=== PATIENT | female | born 1980 | race Caucasian/White ===

== ENCOUNTER → 2018-01-09 11:10 | Outpatient (CLI) | payer OTHER, MEDICAID, SELFPAY | PROVIDERS: Visit Provider Specialist | DX: Z53.9 Procedure and treatment not carried out, unspecified reason (principal) ==

== ENCOUNTER → 2018-04-16 09:48 | Outpatient (CLI) | payer OTHER, MEDICAID, SELFPAY ==
[2018-04-16 10:15] LABS: Add Manual Diff / Slide Review NO; Basophils Percent Auto 0.2 % (0-2); Eosinophils Percent Auto 1.8 % (2-4); Hemoglobin 11.8 g/dL (12.0-16.0); Mean Corpuscular HGB Conc 33.7 % (30-36); Mean Corpuscular Hemoglobin 28.9 PG (26-34); Mean Corpuscular Volume 85.6 fL (80-100); Monocytes Percent Auto 5.8 % (3-14); Neutrophils Absolute Auto 6400 /uL (3000-5900); Neutrophils Percent Auto 73.2 % (50-75); Platelet Count 244 X10^3/uL (150-400); Red Blood Cell Count 4.09 X10^6/uL (4.0-5.2); Red Cell Distribution Width 14.6 % (11.6-14.8); White Blood Cell Count 8.8 X10^3/uL (4.5-11.0)
[2018-04-18 14:54] LABS: Bile Acids, Total < 0.8 umol/L (< 10.1)
== END ==
PROVIDERS: Visit Provider Specialist
DX: Z34.92 Encounter for supervision of normal pregnancy, unspecified, second trimester (principal); L29.9 Pruritus, unspecified
CPT/HCPCS: 36415; 82239; 85025; 87086

== ENCOUNTER 2018-04-28 10:36 | Observation (INO) | payer OTHER, MEDICAID, SELFPAY ==
--- NOTE | 2018-04-28 10:39 | DI.US.S_ITS ---
PROCEDURE: US OB TRANSVAGINAL INDICATIONS: twins 35 weeks gestation losing her mucus plug TECHNIQUE: The ordering healthcare provider, Dr. Lai, specifically requested a limited evaluation of cervical length. FINDINGS: Cervical length was assessed, documenting a 2.5 cm cervical length. IMPRESSION: 2.5 cm cervical length, limited evaluation at the specific request of the ordering obstetrical specialist Dr. Lai. Dictated by: Adal Santos M.D. on 04/28/2018 at 16:48 Approved by: Adal Santos M.D. on 04/28/2018 at 16:52
[2018-04-28] MEDS: NIFEdipine 10 MG CAPSULE PO ×4 (11:35→12:47)
[2018-04-28 12:41] LABS: Strep Grp B PCR POS for Grp B Strep
[2018-04-28] MEDS: TERBUTALINE 1 MG/ML VIAL 0.25 MG SUBCUT (14:25)
[2018-04-28] MEDS: NIFEdipine 30 MG TAB ER PO (14:25)
--- NOTE | 2018-04-28 15:31 | PM.OBTRLD ---
Visit Information Visit Information Date of evaluation: 04/28/18 Primary OB Provider: Israel Lai On-call OB Provider: Israel Lai Reason for Evaluation: Yes non-stress test and Yes pre-term labor Comments/Additional reasons for admission: twins Exam Narrative Exam Narrative: Patient presented with vaginal discharge. An ultrasound was obtained which showed a cervical length of 2.5 cm which was actually greater than had been seen in the office previously. The baby's appear to be vertex vertex and the patient was having known fluid leakage but having some contractions. The patient was treated with p.o. hydration and the nifedipine protocol and then given terbutaline as well. Her contractions subsided. Objective Labs Labs: Laboratory Results - last 24 hr 04/28/18 11:15 Group B Strep (PCR) Pos for grp b strep H Evaluation Evaluation Laboratory results: Laboratory Tests 04/28/18 11:15 Group B Strep (PCR) Pos for grp b strep H Diagnosis, Plan/Disposition Plan/Disposition Plan: Patient with twins not in labor with contractions. Contractions have abated with oral hydration and nifedipine Patient be placed on long-acting nifedipine and to stay in town for 24 hr and be rechecked in the office in the morning. OB Disposition: home
== END 2018-04-28 15:55 | disposition home or self-care (01) ==
DX: Z34.83 Encounter for supervision of other normal pregnancy, third trimester (principal); Z3A.35 35 weeks gestation of pregnancy
CPT/HCPCS: 59025; 59050; 76815; 76817; 87653; 96372; G0378; G0379

== ENCOUNTER 2018-05-02 10:06 | Inpatient (IN) | payer OTHER, MEDICAID, SELFPAY ==
[2018-05-02] VITALS (8 sets, daily range): BP systolic 73–110; BP diastolic 43–70; PULSE 83–112; RESP 8–20; TEMP 36.7–37.1; O2SAT 95–98
--- NOTE | 2018-05-02 11:29 | P.HPOB_ITS ---
OB HPI Date/Time Date of admission: 05/02/18 Date Patient Seen: 05/02/18 Time Patient Seen: 10:24 History of Present Condition Chief complaint: OBSERVATION OF LABOR : 1 Para: 0 Estimated Date of Delivery: 06/01/18 Estimated Gestational Age (weeks): 35 Narrative: Caroline Draper is a 37 year old female admitted in active labor Indications Operative indications ( section): distress History of Present care: good care, initiated at week # (9) and number of visits (16) Dating criteria: LMP confirmed by 1st trimester US Ultrasounds: normal mid trimester US Obstetrical complications: none Medical complications: none Preadmission Labs Blood type: 0 (-) negative -: Antibody screen: negative, GBS status: positive, HBsAG: negative, HIV: negative, HSV 1: positive, HSV 2: negative and RPR/VDLR: negative -: Chlamydia screen: not detected and Gonorrhea screen: not detected -: Rubella: immune HCAB: negative 1 hr GTT: 154 Evaluation Evaluation Baseline heart rate: 180 Variability: Marked (>25) monitor accelerations: Absent monitor decelerations: Absent Contraction Frequency (minutes): 2 Uterine Contraction Intensity: Strong/Firm Category of Tracing: III Cervical dilation (cm): 4 Cervical effacement (%): 100 station: 0 Meds Home Medications Medication Instructions Recorded Confirmed Type hydroxyzine HCl 25 mg tablet 25 mg PO BID PRN #30 tab 04/16/18 Rx Double Electric Breast Pump #1 ea 04/29/18 Rx Review of Systems Review of Systems All systems reviewed & are unremarkable except as noted in HPI and below Exam Vital Signs (past 8 hours): Blood pressure 136/67, pulse is 117, temperature initiallyt 101 , decreased to 99.7 Narrative Exam Narrative: HEENT exam within normal limits. Lungs are clear to auscultation and percussion. Heart is regular rate and rhythm, no S3-S4 or murmurs. Abdomen is soft, nontender. Extremities with trace edema, nontender. Assessment and Plan (1) Dichorionic diamniotic twin in third trimester: Current visit: Yes Status: Acute (2) 35 weeks gestation of : Current visit: Yes Status: Acute (3) distress affecting delivery: Current visit: Yes Status: Acute 35-5/7 weeks by dates twin gestation arrived after spontaneous rupture of membranes in active labor. Baby B with category 3 tracing that did not respond to resuscitation measures. Plan for primary low-transverse section.
[2018-05-02] MEDS: CITRIC ACID/SODIUM CITRATE 15 ML SOLUTION 30 ML PO (11:36)
[2018-05-02] MEDS: LACTATED RINGERS 1,000 ML 100 ML IV (11:36)
[2018-05-02 11:51] LABS: Add Manual Diff / Slide Review NO; Basophils Percent Auto 0.2 % (0-2); Eosinophils Percent Auto 0.1 % (2-4); Hematocrit 33.2 % (36-46); Hemoglobin 11.1 g/dL (12.0-16.0); Lymphocytes Percent Auto 2.1 % (25-40); Mean Corpuscular HGB Conc 33.3 % (30-36); Mean Corpuscular Hemoglobin 27.7 PG (26-34); Mean Corpuscular Volume 83.1 fL (80-100); Monocytes Percent Auto 1.2 % (3-14); Neutrophils Absolute Auto 13900 /uL (3000-5900); Neutrophils Percent Auto 96.4 % (50-75); Platelet Count 204 X10^3/uL (150-400); Red Cell Distribution Width 14.7 % (11.6-14.8); White Blood Cell Count 14.5 X10^3/uL (4.5-11.0)
[2018-05-02] MEDS: ACETAMINOPHEN 650 MG SUPP PR (11:52)
[2018-05-02] MEDS: LACTATED RINGERS 1,000 ML 42 ML IV ×3 (12:00→13:35)
[2018-05-02] MEDS: CEFAZOLIN 2 GM/100 ML FROZ.PIGGY IV (12:03)
--- NOTE | 2018-05-02 12:55 | SUR.OPER ---
Supine on Padded OR bed, head on pillow, safety belt at thigh, arms secured on padded arm boards at <90 degrees abduction. Bump under right buttock. Legs uncrossed with pillow under knees, gel pad to heels, tape over blanket to lower legs.
--- NOTE | 2018-05-02 13:27 | SUR.PHASEI ---
Upon arrival bp low, VVO finish iv bag and give another 500ml LR bolus. Bolus infusing without difficulty.
[2018-05-02] MEDS: CARBOPROST 250 MCG/ML AMPUL IM (13:31)
--- NOTE | 2018-05-02 13:36 | P.OP_ITS ---
Operative Date/Time/Diagnoses Date of procedure: 05/02/18 Time of procedure: 13:33 Pre-op diagnosis: Twin gestation at 35-,5/7 weeks by dates in active labor with possible distress Post-op diagnosis: same Procedure & Clinicians Procedure: Primary low-transverse section Same procedure as scheduled: Yes Indications: 35-5/7 weeks gestation dichorionic diamniotic twin gestation in active labor with possible distress and maternal fever Surgeon: Chela Lozano Wind Project Manager: Cuong Mora Click Yes if Unassisted: No Anesthesia Type: Epidural Operative Notes Findings: Normal tubes, ovaries, and uterus. Both viable female infants. Baby A weight 2650 g, baby B weight 2802 g. Closure Type: primary Estimated Blood Loss (mL): 450 Blood products transfused: none Procedure in detail: The patient was brought to the operating room where she underwent bolus in her epidural for anesthesia. She was placed in a supine position with a left lateral tilt. A Chamberlain catheter was placed. Pulsatile stockings were placed and functional throughout the case. 2 g of Ancef were given IV prior to the incision. Warming was in place. The patient was prepped and draped in usual sterile fashion. A low transverse incision was made with a scalpel and the incision was carried down to the fascial layer which was incised transversely with scissors. The midline attachments are superiorly and inferiorly. Some bleeding was controlled Bovie. The rectus muscles were in the midline and the peritoneal incision was made with no damage to internal structures. The peritoneum was incised and superiorly and inferiorly. Bladder blade was placed and a bladder flap was developed and the bladder held away from the lower uterine segment. An incision was made in the uterus with the scalpel and the incision was extended with stretching. Baby A's head was elevated out of the abdomen and with fundal pressure the baby was delivered. The was bulb suctioned for clear fluid and handed off to the warmer. Cord blood was collected for cord pH and cord bloods for Rh-negative status. Baby B's bag of water was ruptured and clear fluid noted. The head was elevated out of the abdomen with fundal pressure the baby was delivered. The placenta was delivered manually. The uterus was cleaned with clean laps. Patient was given Hemabate injection 250 mcg intra muscular in the uterus. The uterine incision was closed in 2 layers of 0 chromic suture the first a running locking layer the second an imbricating layer. The bladder peritoneum was repaired with 2-0 Polysorb suture. The gutters were cleaned of any remaining fluids and ovaries and tubes were observed to be normal. Adequate hemostasis was noted. The perineum was closed with 2-0 Polysorb suture. The fascia layer was closed with 0 Polysorb suture with 2 stitches. The incision was irrigated and adequate hemostasis noted. The incision was closed with interrupted 3-0 Polysorb sutures and then a subcuticular stitch of 4-0 Polysorb suture. Steri-Strips were placed. The uterus was massaged to remove any clots. The patient went to recovery room in good condition. Counts of instruments and sponges were correct. Complications: none Condition: stable Disposition: other ([facility]) Plan for aftercare: Routine post section monitor for endometritis.
--- NOTE | 2018-05-02 13:55 | SUR.PHASEI ---
Pt transferred to the center, report given to [place]. James cdi. Large amt of bleeding to jae-pad, fundus checked by [place]. IV saline locked. Spinal leverl at t4.
[2018-05-02] MEDS: KETOROLAC 30 MG/ML VIAL IV ×2 (16:00→22:25)
[2018-05-02] MEDS: OXYCODONE/ACETAMINOPHEN 5/325 TABLET 2 TAB PO ×2 (20:02→20:43)
[2018-05-03] MEDS: OXYCODONE/ACETAMINOPHEN 5/325 TABLET 2 TAB PO ×3 (03:28→12:39)
[2018-05-03] MEDS: KETOROLAC 30 MG/ML VIAL IV ×2 (03:58→10:30)
--- NOTE | 2018-05-03 06:34 | SUR.OPER ---
viable female infants deliverd at 1222 and 1223. placenta and cord blood tubes to ob with rn
[2018-05-03 07:26] LABS: Add Manual Diff / Slide Review NO; Basophils Percent Auto 0.2 % (0-2); Eosinophils Percent Auto 0.6 % (2-4); Hematocrit 30.7 % (36-46); Hemoglobin 10.2 g/dL (12.0-16.0); Lymphocytes Percent Auto 9.8 % (25-40); Mean Corpuscular HGB Conc 33.3 % (30-36); Mean Corpuscular Hemoglobin 27.8 PG (26-34); Mean Corpuscular Volume 83.5 fL (80-100); Monocytes Percent Auto 4.6 % (3-14); Neutrophils Absolute Auto 16500 /uL (3000-5900); Neutrophils Percent Auto 84.8 % (50-75); Platelet Count 183 X10^3/uL (150-400); Red Blood Cell Count 3.68 X10^6/uL (4.0-5.2); Red Cell Distribution Width 14.9 % (11.6-14.8); White Blood Cell Count 19.4 X10^3/uL (4.5-11.0)
[2018-05-03] MEDS: PRENATAL VIT,CALC/IRON/FOLIC 1 TABLET 1 TAB PO (09:06)
[2018-05-03] MEDS: DOCUSATE 250 MG CAPSULE PO (09:06)
[2018-05-03] MEDS: FERROUS GLUCONATE 324 MG TABLET PO (09:06)
--- NOTE | 2018-05-03 13:44 | P.DS_ITS ---
Discharge Providers Date of admission: 05/02/18 10:06 Primary care physician: Israel Lai MD Consults: 05/02/18 14:16 Consult to Clutch Assembler Routine Comment: Discharge provider: Chela Lozano MD Discharge Date: 05/03/18 Summary Date Patient Seen: 05/03/18 Time Patient Seen: 13:44 Hospital Course: Patient arrived on Labor and delivery in active labor after spontaneous rupture membranes. The patient received an epidural catheter for pain control. Patient developed a fever with nonreassuring heart tones. Decision was made to proceed with emergency section. Patient delivered viable female infants. Weights were 5 lb 13 oz and 6 lb 2 oz. Due to the fever the infants were going to be treated with IV antibiotics for possible infection so decision was made to [facility]. The mother did well postoperatively. By postoperative day 1. She was passing gas, urinating and ambulating well. Her pain was controlled. She had remained afebrile after delivery. She was discharged home so that she could be present with the babies and hospital. Peripartum Data Delivery Method: Emergency Section Procedures: Epidural catheter, primary low-transverse section complications: none Discharge Diagnosis (1) Dichorionic diamniotic twin in third trimester: Status: Acute (2) 35 weeks gestation of : Status: Acute (3) distress affecting delivery: Status: Acute Status at Discharge Functional status at discharge: independent ambulation Overall status at discharge: patient is progressing back to baseline Time Spent with Patient Total time spent providing and/or coordinating discharge services: Less than 30 minutes Objective Labs Result Diagrams: 05/03/18 Unknown Labs: Laboratory Results - last 24 hr 05/03/18 05/03/18 06:58 Unknown WBC 19.4 H RBC 3.68 L Hgb 10.2 L Hct 30.7 L MCV 83.5 MCH 27.8 MCHC 33.3 RDW 14.9 H Plt Count 183 Neut % (Auto) 84.8 H Lymph % (Auto) 9.8 L [place] % (Auto) 4.6 Eos % (Auto) 0.6 L Baso % (Auto) 0.2 Neut # (Auto) 93694 H Maternal Bleed Negative Discharge Plan Discharge Plan Patient Disposition: Home Discharge Med Rec/Prescriptions Prescriptions: New oxycodone-acetaminophen 5-325 mg Tablet 2 tab PO Q4HR PRN (Reason: Pain, Severe (7-10)) Qty: 40 RF: 0 ibuprofen 600 mg Tablet 600 mg PO Q6HR PRN (Reason: As Needed For Fever/Mild Pain) Qty: 30 RF: 0 docusate sodium 250 mg Capsule 250 mg PO DAILY Qty: 20 RF: 0 ferrous gluconate 324 mg (38 mg iron) Tablet 324 mg PO DAILY Qty: 30 RF: 0 No Action Double Electric Breast Pump Qty: 1 RF: 0 Follow up/Referrals: Chela Lozano MD [Physician] - 1 Week (please f/u w/ Dr. Lozano on @ 12:15pm-[facility]. Dr. Lozano, @ 1145am on [place]) Israel Lai MD [Primary Care Provider] - Provider Discharge Instructions Diet: Regular Skin/Wound/Dressing Care Report to your healthcare provider any signs of infection, such as:: chills, fever, increased pain and unusual drainage Dressing: The Steri-Strips on for 1 week may get wet and pat dry get wet and remove in 1 week Visit Report/Discharge Packet Stand Alone Forms: Discharge: Care Visit Report Forms: Stroke Signs & Symptoms Discharge Data Primary Care Provider: Israel Lai Attending Provider: Chela Lozano Admit Date/Time: 05/02/18 10:06 Discharges patient from system. Discharge Date/Time: 05/03/18 14:55
[2018-05-03] MEDS: RHO(D) IMMUNE GLOBULIN 1,500 UNIT SYRINGE 1500 UNIT IM (14:21)
[2018-05-03 16:04] VITALS: BP 112/60; PULSE 68; RESP 16; TEMP 36.3
--- NOTE | 2018-05-08 09:15 | PATH_ITS ---
[facility] Accession Number: [id number] . 01 Material submitted: . PLACENTA . 02 Diagnosis: Monochorionic-Diamnionic Twin Placenta (Weight 875 grams): Baby A: Placenta parenchyma: Disrupted maternal surface; suggestive of possible incomplete placenta by gross examination. Fibrin clot present (approximately 1.5 cm, less than 5% of the placental disc volume). Chorionic villi demonstrate variable maturity. Mild inter- and intravillous fibrin is present. No villitis identified. . Umbilical cord: Inserted peripherally. Length: 13.5 cm. Three vessels present. No funisitis identified. . Membranes: Membranes ruptured at the edge of the placental disc margin. Chorioamnionitis present; abundant eosinophils identified, of indeterminate significance. Meconium staining present. . Placenta B: Placenta parenchyma: Chorionic villous maturation is variable. Mild to moderate inter and intravillous fibrin is present. No villitis identifeid. . Umbilical Cord: Inserted peripherally. Length: 17.2 cm. No funisitis identified. Three vessels present. . Membranes: Ruptured 12.5 cm from the placental disc margin. Chorioamnionitis is present; abundant eosinophiles identified, of indeterminate significance. [facility]/05/13/2018 . 02 Electronically signed: . Denise Odell MD, Pathologist NPI- [id number] . 01 Gross description: . Received in formalin, labeled placenta, is an intact placenta which includes the placental disc (875 grams, 30.5 x 16.5 by up to 2.8 cm), two umbilical cords, membranes, and a dividing membrane. Baby A and baby B are arbitrarily designated by the fws faculty assistant for grossing purposes. . Baby A membranes are ruptured at the edge of the placenta and are translucent. The umbilical cord (length-13.5 cm, diameter-1.2 x 0.5 cm) is attached 1.0 cm from the edge of the placenta and contains three vessels. . Baby B membranes are ruptured 12.5 cm from the edge of the placenta and are semitranslucent. The umbilical cord (length-17.2 cm, diameter-1.6 x 0.5 cm) is attached less than 0.1 cm from the edge of the placenta and contains three vessels. . The surface is smooth and shiny with focally dilated vessels. The maternal surface is dark maroon with normal cotyledon formation. Baby A's side is diffusely lacerated. The placental body is spongy with no masses identified. Section code: Baby A (A1) edge of placenta with membranes; (A2) umbilical cord, sales solutions representative serial sections; (A3-A4, A5-A6) placenta, two bisected full-thickness sections; (A7) dividing membrane with attached placenta; baby B-(A8) edge of placenta with membrane; (A9) umbilical cord, sales solutions representative serial section; (A10-A12) placenta, three full-thickness sections. ([id number]) /MRV . 02 Pathologist provided ICD-10: O43.90 . 02 CPT . 964498 Performed at: 01 [facility] [address] [id number] MD Jose Martin Dewitt MD Phone: [phone] Performed at: 02 [facility] [address] [place] [id number] MD Kirti Shearer MD Phone: [phone]
== END 2018-05-03 14:55 | disposition home or self-care (01) | DRG 540 ==
PROVIDERS: Admitting Provider Specialist; Visit Provider Specialist
PROC: 10D00Z1 Extraction of Products of Conception, Low, Open Approach (ICD-10-PCS; CPT 59514; principal; 2018-05-02 11:50)
DX: O30.043 Twin pregnancy, dichorionic/diamniotic, third trimester (principal); Z3A.35 35 weeks gestation of pregnancy; Z37.2 Twins, both liveborn; O76 Abnormality in fetal heart rate and rhythm complicating labor and delivery; O75.2 Pyrexia during labor, not elsewhere classified; O60.14X2 Preterm labor third trimester with preterm delivery third trimester, fetus 2; O60.14X1 Preterm labor third trimester with preterm delivery third trimester, fetus 1; O31.8X31 Other complications specific to multiple gestation, third trimester, fetus 1; O31.8X32 Other complications specific to multiple gestation, third trimester, fetus 2
CPT/HCPCS: 01967; 01968; 36415; 59050; 59514; 76815; 85025; 85461; 86850; 86870; 86900; 86901; 87070; 87075; 87077; 87147; 87186; 87205; G0379; J0690; J1100; J1885; J2405; J2590; J2765; J2790; J3010

== ENCOUNTER → 2018-06-12 15:27 | Outpatient (CLI) | payer OTHER, MEDICAID, SELFPAY | PROVIDERS: Visit Provider Family Medicine | DX: N61.0 Mastitis without abscess (principal) | CPT/HCPCS: 87070; 87075; 87205 ==

== ENCOUNTER → 2018-06-20 13:48 | Outpatient (CLI) | payer OTHER, MEDICAID, SELFPAY | PROVIDERS: Visit Provider Family Medicine | DX: Z78.9 Other specified health status (principal) | CPT/HCPCS: 87070; 87075; 87077; 87205 ==

== ENCOUNTER → 2019-05-21 13:35 | Outpatient (CLI) | payer OTHER, MEDICAID, SELFPAY ==
[2019-05-24 12:25] LABS: Mitogen-NIL > 10.00 IU/mL; NIL 0.03 IU/mL; QuantiFERON TB NEGATIVE (Negative); TB1-NIL 0.03 IU/mL; TB2-NIL 0.02 IU/mL
== END ==
PROVIDERS: PCP Specialist; Visit Provider Specialist
DX: Z11.1 Encounter for screening for respiratory tuberculosis (principal)
CPT/HCPCS: 36415; 86480

== ENCOUNTER → 2021-07-16 09:58 | Outpatient (CLI) | payer OTHER, SELFPAY ==
--- NOTE | 2021-07-16 09:59 | DI.RAD.S_ITS ---
PROCEDURE: XR FOOT LT MIN 3V INDICATIONS: L ankle pain, non ambulatory TECHNIQUE: 3 views of the foot were acquired. COMPARISON: [facility], CR, XR ANKLE LT MIN 3V, 07/16/2021, 9:50. FINDINGS: Bones: No fractures or dislocations. No suspicious bony lesions. Toe alignment abnormalities are seen. Soft tissues: Lateral ankle soft tissue swelling is seen. IMPRESSION: Lateral ankle soft tissue swelling is seen. No displaced fractures are seen on these plain films. Dictated by: Armando Otero M.D. on 07/16/2021 at 9:14 Approved by: Armando Otero M.D. on 07/16/2021 at 9:15
--- NOTE | 2021-07-16 09:59 | DI.RAD.S_ITS ---
PROCEDURE: XR ANKLE LT MIN 3V INDICATIONS: Left ankle pain TECHNIQUE: 3 views of the ankle were acquired. COMPARISON: [facility], , XR FOOT LT MIN 3V, 07/16/2021, 9:50. FINDINGS: Bones: No fractures or dislocations. Ankle mortise is normally aligned. No suspicious bony lesions. The talar dome demonstrates no aggie abnormality. Soft tissues: Soft tissue swelling is seen laterally IMPRESSION: Soft tissue swelling is seen laterally, without an acute bony abnormality seen by plain film. If there is point tenderness (or other clinical suspicion for a fracture not seen on these images) then a dedicated CT or a short-term followup plain film series could be considered for further evaluation, as clinically appropriate. If it would be helpful for clinical management decision making, please consider a dedicated, scheduled ankle MRI for further evaluation (assuming that there is no contraindication). Dictated by: Armando Otero M.D. on 07/16/2021 at 9:14 Approved by: Armando Otero M.D. on 07/16/2021 at 9:14
== END ==
PROVIDERS: PCP Specialist; Referring Provider Physician Assistant; Visit Provider Physician Assistant
DX: M25.572 Pain in left ankle and joints of left foot (principal); M79.89 Other specified soft tissue disorders
CPT/HCPCS: 73610; 73630

== ENCOUNTER → 2024-05-01 09:44 | Outpatient (CLI) | payer BC, SELFPAY ==
--- NOTE | 2024-05-01 09:48 | DI.RAD.S_ITS ---
PROCEDURE: XR HIP W PEL IF DONE LT 2V INDICATIONS: PAIN IN HIP TECHNIQUE: Two views of the hip were acquired. COMPARISON: None. FINDINGS: Bones: Spina bifida occulta at L5 appreciated-clinically insignificant. No osseous pelvic abnormality SI and hip joints: Normal in width and alignment without arthritic change Soft tissues: No soft tissue swelling, calcification or mass. IMPRESSION: Normal pelvis Dictated by: Ezekiel Wick M.D. on 05/02/2024 at 7:11 Approved by: Ezekiel Wick M.D. on 05/02/2024 at 7:12
== END ==
PROVIDERS: PCP Specialist; Referring Provider Nurse Practitioner Family; Visit Provider Nurse Practitioner Family
DX: M25.552 Pain in left hip (principal)
CPT/HCPCS: 73502